=== PATIENT | male | born 1955 | race Caucasian/White ===

== ENCOUNTER 2019-04-16 10:34 | Inpatient (IN) ==
[2019-04-16] MEDS: Furosemide 40 MG/4 ML VIAL IVP ONE (13:04)
[2019-04-16 13:28] LABS: Basophils # 0.1 K/mcL (0.0-0.2); Basophils % 0.3 %; Hematocrit 38.7 % (37.5-50.1); Hemoglobin 13.3 g/dL (12.9-16.9); Immature Granulocytes % 1.5 % (0-4); Lymphocytes # 1.2 K/mcL (0.6-4.6); Lymphocytes % 8.4 %; Mean Corpuscular HGB Conc 34.4 g/dL (31.6-35.5); Mean Corpuscular Hemoglobin 30.6 pg (28.0-33.3); Mean Platelet Volume 11.8 fL (9.4-12.4); Monocytes # 1.2 K/mcL (0.0-1.3); Monocytes % 8.2 %; Nucleated Red Blood Cells 0.1 /100 WBC (0); Platelet Count 140 K/mcL (140-400); Red Blood Count 4.35 M/mcL (4.19-5.50); Red Cell Distribution Width 14.6 % (11.5-14.5); Segmented Neutrophils % 81.6 %; White Blood Count 14.7 K/mcL (4.3-11.1)
[2019-04-16 13:45] LABS: Calcium 8.3 mg/dL (8.6-10.3); Potassium 3.5 mEq/L (3.5-5.1)
[2019-04-16 13:48] LABS: Troponin I 7.64 ng/mL (< 0.04)
[2019-04-16 14:15] LABS: ABG Base Excess -1 mEq/L (-2 to 3); ABG HCO3 21 mEq/L (21-27); ABG Oxygen Saturation 96 % (95-98); ABG PCO2 27 mmHg (35-45); ABG PO2 70 mmHg (85-104); ABG TCO2 22 mEq/L (20-26)
[2019-04-16] MEDS ORDERED: *HR* Heparin 5,000 UNIT/ML VIAL IVP PRN ×4 (15:01→17:51)
[2019-04-16] MEDS ORDERED: *HR* Heparin 5,000 UNIT/ML VIAL IVP ONE (15:01)
[2019-04-16] MEDS ORDERED: Heparin 25,000 UNIT/250 ML D5W 25,000 UNIT/250 ML IV.SOLN IVC SCH (15:15)
[2019-04-16] MEDS: Azithromycin 500 MG in 0.9 % Sodium Chloride 250 ML IVPB SCH (15:23)
[2019-04-16] MEDS: cefTRIAXone 2,000 MG in Water for inj. (sterile) 20 ML IVP SCH (15:23)
[2019-04-16] MEDS ORDERED: D5% in Water 1,000 ML IVC PRN (15:46)
[2019-04-16] MEDS ORDERED: *HR* Dextrose 50 % in Water (Syg) 50 ML SYRINGE IVP PRN (15:46)
[2019-04-16] MEDS ORDERED: Dextrose Gel 15 GM/37.5 ML TUBE PO PRN ×2 (15:46)
[2019-04-16] MEDS ORDERED: Ondansetron 4 MG/2 ML VIAL ONE (16:04)
[2019-04-16 16:29] LABS: Hemoglobin 12.1 g/dL (12.9-16.9); Mean Corpuscular HGB Conc 33.6 g/dL (31.6-35.5); Mean Corpuscular Hemoglobin 30.7 pg (28.0-33.3); Mean Corpuscular Volume 91.4 fL (83.0-100.0); Mean Platelet Volume 11.4 fL (9.4-12.4); Platelet Count 122 K/mcL (140-400); Red Blood Count 3.94 M/mcL (4.19-5.50); Red Cell Distribution Width 14.6 % (11.5-14.5); White Blood Count 14.7 K/mcL (4.3-11.1)
[2019-04-16 16:36] LABS: INR 1.8
[2019-04-16 16:39] LABS: Heparin anti-factor XA UFH 1.11 IU/mL (0.30-0.70)
[2019-04-16 17:15] LABS: Bilirubin,Urine Negative (Negative); Blood,Urine Moderate (Negative); Clarity,Urine Cloudy (Clear); Color,Urine Yellow (Yellow); Glucose,Urine (UA) 250 mg/dL (Normal); Ketones,Urine Negative (Negative); Leukocyte Esterase,Urine Negative (Negative); Nitrite,Urine Negative (Negative); PH,Urine 5.5 pH Units (5.0-8.0); Protein,Urine 100 mg/dL (Neg-Trace); Specific Gravity,Urine 1.017 (1.010-1.025); Urobilinogen,Urine Normal (Normal)
[2019-04-16] MEDS: Insulin LISPRO 300 UNITS/3 ML VIAL SQ SCH ×2 (17:15→20:21)
[2019-04-16 17:19] LABS: Bacteria,Urine None Seen per hpf (None-Few); RBC,Urine 15-30 per hpf (0-3); Squamous Epithelial Cell,Urine Many per lpf (None-Few)
[2019-04-16 17:31] LABS: Hyaline Casts,Urine Few per lpf (None-Few)
[2019-04-16] MEDS ORDERED: *HR* Metoprolol 5 MG/5 ML VIAL IVP SCH (18:00)
[2019-04-16] MEDS: *HR* Metoprolol 5 MG/5 ML VIAL IVP SCH ×2 (18:10→23:13)
[2019-04-16] MEDS: Heparin 25,000 UNIT/250 ML D5W 25,000 UNIT/250 ML IV.SOLN IVC SCH (18:12)
[2019-04-16 20:53] LABS: Calcium 8.1 mg/dL (8.6-10.3); Potassium 3.9 mEq/L (3.5-5.1)
[2019-04-16] MEDS ORDERED: Perflutren Lipid Microsphere 1.3 ML in 0.9 % Sodium Chloride 8.7 ML IVP ONE (21:06)
[2019-04-16] MEDS: Ondansetron 4 MG/2 ML VIAL IVP PRN (21:40)
[2019-04-17 05:30] LABS: Basophils # 0.1 K/mcL (0.0-0.2); Basophils % 0.3 %; Hematocrit 38.5 % (37.5-50.1); Hemoglobin 13.4 g/dL (12.9-16.9); Immature Granulocytes % 1.5 % (0-4); Lymphocytes % 11.4 %; Mean Corpuscular HGB Conc 34.8 g/dL (31.6-35.5); Mean Corpuscular Hemoglobin 30.7 pg (28.0-33.3); Mean Corpuscular Volume 88.1 fL (83.0-100.0); Mean Platelet Volume 11.9 fL (9.4-12.4); Monocytes # 1.5 K/mcL (0.0-1.3); Monocytes % 8.6 %; Neutrophils # 13.9 K/mcL (1.6-8.9); Nucleated Red Blood Cells 0.2 /100 WBC (0); Platelet Count 110 K/mcL (140-400); Red Blood Count 4.37 M/mcL (4.19-5.50); Red Cell Distribution Width 14.6 % (11.5-14.5); Segmented Neutrophils % 78.2 %; White Blood Count 17.8 K/mcL (4.3-11.1)
[2019-04-17] MEDS: Ondansetron 4 MG/2 ML VIAL IVP PRN (05:35)
[2019-04-17] MEDS: *HR* Metoprolol 5 MG/5 ML VIAL IVP SCH (05:36)
[2019-04-17 05:48] LABS: Calcium 8.3 mg/dL (8.6-10.3); Potassium 3.7 mEq/L (3.5-5.1)
[2019-04-17] MEDS: Insulin LISPRO 300 UNITS/3 ML VIAL SQ SCH ×4 (07:45→21:35)
[2019-04-17] MEDS: Aspirin 81 MG TAB.CHEW PO SCH (07:45)
[2019-04-17] MEDS ORDERED: Metoprolol XL (24 HR) Succ 25 MG TAB.ER.24H PO SCH (11:00)
[2019-04-17] MEDS ORDERED: hydrALAZINE 25 MG TABLET PO SCH (16:00)
[2019-04-17] MEDS: Azithromycin 500 MG in 0.9 % Sodium Chloride 250 ML IVPB SCH (16:34)
[2019-04-17] MEDS: cefTRIAXone 2,000 MG in Water for inj. (sterile) 20 ML IVP SCH (16:35)
[2019-04-17] MEDS ORDERED: Albumin 25% 25gram/100mL 25 GM/100 ML IV.SOLN IVPB ONE (17:33)
[2019-04-17] MEDS: Heparin 25,000 UNIT/250 ML D5W 25,000 UNIT/250 ML IV.SOLN IVC SCH (18:34)
[2019-04-17 18:36] LABS: Basophils % 0.2 %; Eosinophils % 0.1 %; Hemoglobin 12.7 g/dL (12.9-16.9); Immature Granulocytes % 1.5 % (0-4); Immature Platelets 12.9 % (1.1-6.1); Mean Corpuscular HGB Conc 34.3 g/dL (31.6-35.5); Mean Corpuscular Hemoglobin 30.3 pg (28.0-33.3); Mean Corpuscular Volume 88.3 fL (83.0-100.0); Mean Platelet Volume 11.9 fL (9.4-12.4); Monocytes % 6.8 %; Neutrophils # 11.8 K/mcL (1.6-8.9); Nucleated Red Blood Cells 1.2 /100 WBC (0); Red Blood Count 4.19 M/mcL (4.19-5.50); Red Cell Distribution Width 14.8 % (11.5-14.5); Segmented Neutrophils % 81.4 %; White Blood Count 14.5 K/mcL (4.3-11.1)
[2019-04-17 18:51] LABS: Lymphocytes # 1.5 K/mcL (0.6-4.6); Platelet Count 74 K/mcL (140-400)
[2019-04-17 18:52] LABS: Platelet Estimate Decreased (Normal)
[2019-04-17 19:30] LABS: Calcium 7.8 mg/dL (8.6-10.3); Potassium 3.5 mEq/L (3.5-5.1); Troponin I 3.95 ng/mL (< 0.04)
[2019-04-17 20:41] LABS: ABG Base Excess 1 mEq/L (-2 to 3); ABG HCO3 23 mEq/L (21-27); ABG Oxygen Saturation 96 % (95-98); ABG PCO2 31 mmHg (35-45); ABG PH 7.48 pH Units (7.32-7.45); ABG PO2 72 mmHg (85-104); ABG TCO2 24 mEq/L (20-26)
[2019-04-17 22:26] LABS: INR 1.8; Prothrombin Time 20.5 Seconds (9.4-12.1)
[2019-04-17 22:29] LABS: Activated Partial Thrombo Time 44.1 Seconds (26.0-36.0)
[2019-04-17 22:56] LABS: Albumin 3.8 g/dL (3.5-5.7); Albumin/Globulin Ratio 1.2 (1.1-2.2); Bilirubin,Direct 0.5 mg/dL (0.0-0.2); Bilirubin,Indirect 0.6 mg/dL (0.0-1.0); Bilirubin,Total 1.1 mg/dL (0.3-1.0); Globulin 3.2 g/dL (2.4-3.5)
[2019-04-17] MEDS ORDERED: Morphine Sulfate 2 MG/ML SYRINGE IVP ONE (23:15)
[2019-04-18 01:22] LABS: Basophils % 0.2 %; Hematocrit 35.5 % (37.5-50.1); Hemoglobin 12.4 g/dL (12.9-16.9); Immature Granulocytes % 1.6 % (0-4); Immature Platelets 13.4 % (1.1-6.1); Lymphocytes # 1.3 K/mcL (0.6-4.6); Lymphocytes % 10.1 %; Mean Corpuscular HGB Conc 34.9 g/dL (31.6-35.5); Mean Corpuscular Hemoglobin 30.5 pg (28.0-33.3); Mean Corpuscular Volume 87.2 fL (83.0-100.0); Mean Platelet Volume 11.5 fL (9.4-12.4); Monocytes # 1.1 K/mcL (0.0-1.3); Monocytes % 8.2 %; Neutrophils # 10.3 K/mcL (1.6-8.9); Nucleated Red Blood Cells 2.1 /100 WBC (0); Red Blood Count 4.07 M/mcL (4.19-5.50); Red Cell Distribution Width 14.8 % (11.5-14.5); Segmented Neutrophils % 79.9 %; White Blood Count 12.9 K/mcL (4.3-11.1)
[2019-04-18 01:25] LABS: Platelet Count 76 K/mcL (140-400)
[2019-04-18 01:50] LABS: Complement C3 75 mg/dL (87-200); Magnesium 2.8 mg/dL (1.6-2.6); Phosphorous 5.4 mg/dL (2.7-4.5); Uric Acid 13.3 mg/dL (2.3-7.6)
[2019-04-18 01:58] LABS: Calcium 8.1 mg/dL (8.6-10.3); Potassium 3.2 mEq/L (3.5-5.1)
[2019-04-18 02:02] LABS: Troponin I 3.66 ng/mL (< 0.04)
[2019-04-18 04:13] LABS: Hepatitis B Surface Antigen Nonreactive (Nonreactive)
[2019-04-18 04:42] LABS: Hepatitis C Virus Antibody Nonreactive (Nonreactive)
[2019-04-18 04:43] LABS: Hepatitis B Core IgM Nonreactive (Nonreactive)
[2019-04-18 04:44] LABS: Hepatitis A Antibody IgM Nonreactive (Nonreactive)
[2019-04-18] MEDS: Aspirin 81 MG TAB.CHEW PO SCH (07:38)
[2019-04-18] MEDS: Insulin LISPRO 300 UNITS/3 ML VIAL SQ SCH ×4 (07:38→20:19)
[2019-04-18] MEDS: Ondansetron 4 MG/2 ML VIAL IVP PRN (09:00)
[2019-04-18] MEDS: Isosorbide MONOnitrate (24 HR) 30 MG TAB.ER.24H PO SCH (11:24)
[2019-04-18] MEDS: Azithromycin 500 MG in 0.9 % Sodium Chloride 250 ML IVPB SCH (14:43)
[2019-04-18] MEDS: cefTRIAXone 2,000 MG in Water for inj. (sterile) 20 ML IVP SCH (14:43)
[2019-04-19 04:50] LABS: Basophils % 0.3 %; Eosinophils % 0.1 %; Lymphocytes % 7.9 %; Mean Corpuscular HGB Conc 34.7 g/dL (31.6-35.5); Mean Corpuscular Hemoglobin 30.6 pg (28.0-33.3)
[2019-04-19 04:52] LABS: Hematocrit 34.3 % (37.5-50.1); Hemoglobin 11.9 g/dL (12.9-16.9); Immature Granulocytes % 1.7 % (0-4); Lymphocytes # 1.1 K/mcL (0.6-4.6); Mean Corpuscular Volume 88.2 fL (83.0-100.0); Mean Platelet Volume 12.3 fL (9.4-12.4); Monocytes # 1.2 K/mcL (0.0-1.3); Monocytes % 8.2 %; Neutrophils # 11.7 K/mcL (1.6-8.9); Nucleated Red Blood Cells 2.2 /100 WBC (0); Platelet Count 59 K/mcL (140-400); Red Blood Count 3.89 M/mcL (4.19-5.50); Red Cell Distribution Width 14.7 % (11.5-14.5); Segmented Neutrophils % 81.8 %; White Blood Count 14.3 K/mcL (4.3-11.1)
[2019-04-19 05:11] LABS: Albumin 3.5 g/dL (3.5-5.7); Magnesium 2.7 mg/dL (1.6-2.6); Potassium 3.3 mEq/L (3.5-5.1)
[2019-04-19] MEDS ORDERED: Furosemide 40 MG/4 ML VIAL IVP ONE (07:40)
[2019-04-19] MEDS ORDERED: Furosemide 40 MG/4 ML VIAL ONE (07:42)
[2019-04-19] MEDS: Furosemide 40 MG/4 ML VIAL IVP ONE (07:45)
[2019-04-19 09:07] LABS: Estimated Average Glucose 214 mg/dl
[2019-04-19] MEDS ORDERED: Artificial Tears SOLN 15 ML BOTTLE BOTH EYES PRN (10:27)
[2019-04-19] MEDS ORDERED: FentaNYL (PF) 1,000 MCG in 0.9 % Sodium Chloride 80 ML IVC SCH (10:30)
[2019-04-19] MEDS: Dexmedetomidine HCl 400 MCG/100 ML MLS IVC SCH ×2 (10:35→15:59)
[2019-04-19] MEDS: Ipratropium/Albuterol Neb 3 ML IH SCH ×3 (11:02→15:15)
[2019-04-19 11:11] LABS: ABG Base Excess 4 mEq/L (-2 to 3); ABG HCO3 28 mEq/L (21-27); ABG Oxygen Saturation 100 % (95-98); ABG PCO2 39 mmHg (35-45); ABG PH 7.47 pH Units (7.32-7.45); ABG PO2 188 mmHg (85-104); ABG TCO2 29 mEq/L (20-26); Blood Gas Modality ASSIST CONTROL; Blood Gas VT 450 cc
[2019-04-19] MEDS: Isosorbide MONOnitrate (24 HR) 30 MG TAB.ER.24H PO SCH (12:10)
[2019-04-19] MEDS: Aspirin 81 MG TAB.CHEW PO SCH (12:11)
[2019-04-19] MEDS: Insulin LISPRO 300 UNITS/3 ML VIAL SQ SCH ×3 (12:12→16:35)
[2019-04-19] MEDS: cefTRIAXone 2,000 MG in Water for inj. (sterile) 20 ML IVP SCH (15:44)
[2019-04-19] MEDS: Artificial Tears SOLN 15 ML BOTTLE BOTH EYES SCH ×2 (15:44→16:30)
[2019-04-19] MEDS: Azithromycin 500 MG in 0.9 % Sodium Chloride 250 ML IVPB SCH (15:45)
[2019-04-19] MEDS ORDERED: *HR* Midazolam HCl 5 MG/5 ML VIAL IVP ONE (17:00)
[2019-04-19] MEDS ORDERED: *HR* Etomidate 20 MG/10 ML AMPUL IVP ONE (17:00)
[2019-04-19 19:21] VITALS: BP 0/0
[2019-04-19] MEDS ORDERED: Chlorhexidine Rinse 15 ML MOUTHWASH MM SCH (21:00)
[2019-04-20 06:21] LABS: ANA IgG by ELISA NONE DETECTED (None Detected)
[2019-04-20 07:14] LABS: Serine Protease-3 Antibody 4 AU/mL (0-19)
[2019-04-20] MEDS ORDERED: Pantoprazole 40 MG VIAL IVP SCH (09:00)
[2019-04-20 19:27] LABS: Urine Collection Volume RANDOM mL
[2019-04-20 19:33] LABS: Kappa Qnt Free Light Chains 4.07 mg/dL (0.33-1.94); Lambda Qnt Free Light Chains 5.65 mg/dL (0.57-2.63)
[2019-04-21 21:27] LABS: Alpha 2 Globulin (PEP) 0.83 g/dL (0.48-1.05); Beta Globulin (PEP) 0.96 g/dL (0.48-1.10)
[2019-04-22 09:54] LABS: Immunoglobulin G 1170 mg/dL (768-1632)
[2019-04-22 09:55] LABS: IFE Reflexed IFE Done; Immunoglobulin A 571 mg/dL (68-408); Immunoglobulin M 10 mg/dL (35-263)
== END 2019-04-19 17:01 | disposition expired | DRG 871 ==
LOC: ICNU 12:32
PROVIDERS: ADMIT Internal Medicine Pulmonary Disease; ATTEND Internal Medicine Pulmonary Disease